=== PATIENT | male | born 1965 | race Caucasian/White ===

== ENCOUNTER → 2022-10-24 | Outpatient (CLI) | payer OTHER ==
--- NOTE | 2022-10-25 06:08 | MR ---
EXAMINATION TYPE: MR shoulder RT wo con DATE OF EXAM: 10/24/2022 COMPARISON: Outside right shoulder x-ray October 15, 2022 HISTORY: Right shoulder pain, decreased ROM, fell 2 months ago. TECHNIQUE: Multiplanar, multisequence imaging of the right shoulder is performed without contrast. FINDINGS: Rotator Cuff: Distal supraspinatus and infraspinatus tendons are intact. Rotator cuff muscle bulk is preserved. Acromioclavicular Joint: Mild/moderate narrowing and spurring. Moderate capsular hypertrophy. Loss of underlying fat plane noted seen best sagittal image 17. Glenohumeral Joint: Small to moderate-sized joint effusion. No significant spurring. Labrum: The labrum appears grossly intact given limitation of non-arthrogram study. Biceps Tendon: The long head of biceps is in normal location within bicipital groove. Bone marrow signal: Subchondral cystic change involving the superior humeral head. Other: Increased fluid signal subdeltoid/subacromial bursa. IMPRESSION: 1. Degenerative changes in right shoulder as detailed above. No rotator cuff or labral tear is seen. Subdeltoid/subacromial bursitis is also present.
== END | disposition home or self-care (01) ==
LOC: RADMRIMAIN 20:00
PROVIDERS: ATTEND Orthopaedic Surgery
DX: M19.011 Primary osteoarthritis, right shoulder (principal); M75.51 Bursitis of right shoulder